=== PATIENT | male | born 1980 | race Caucasian/White ===

== ENCOUNTER 2016-09-08 20:55 | Emergency (ER) | payer SELFPAY ==
[~2016-09-08] VITALS: Ht 177.8 cm; Wt 65.0 kg
[2016-09-08 20:57] VITALS: BP 120/80
== END 2016-09-08 22:03 | disposition home or self-care (01) ==
LOC: ED 21:40
DX: F11.10 Opioid abuse, uncomplicated (principal); F15.10 Other stimulant abuse, uncomplicated; I10 Essential (primary) hypertension; E78.5 Hyperlipidemia, unspecified; Z79.82 Long term (current) use of aspirin
CPT/HCPCS: 93005; 99283

== ENCOUNTER 2017-05-14 11:20 | Observation (INO) | payer MEDICAID ==
[~2017-05-14] VITALS: Ht 175.3 cm; Wt 60.0 kg
[2017-05-14] MEDS: NICOTINE GUM 2 MG BC PRN ×2 (01:15→23:09)
[2017-05-14] MEDS ORDERED: ZIPRASIDONE 20 MG INJ IM ONE ×2 (11:52→12:00)
[2017-05-14] MEDS ORDERED: PLEASE ENTER HEIGHT AND WEIGHT MC SCH (12:00)
[2017-05-14 14:09] LABS: BASOPHILS # (AUTO) 0.03 x10^3/uL (0-0.1); BASOPHILS % (AUTO) 0 % (0-1); EOSINOPHILS # (AUTO) 0.04 x10^3/uL (0-0.4); EOSINOPHILS % (AUTO) 0 % (1-7); LYMPHOCYTES # (AUTO) 3.14 x10^3/uL (1-3.4); LYMPHOCYTES % (AUTO) 30 % (22-44); MD NO; MEAN CORPUSCULAR HEMOGLOBIN 28.3 pg (27.5-34.5); MEAN CORPUSCULAR HGB CONC 33.4 g/dL (33.2-36.2); MEAN CORPUSCULAR VOLUME 84.6 fL (81-97); MEAN PLATELET VOLUME 7.4 fL (7.4-10.4); MONOCYTES # (AUTO) 0.64 x10^3/uL (0.2-0.8); MONOCYTES % (AUTO) 6 % (2-9); NEUTROPHILS # (AUTO) 6.71 x10^3/uL (1.8-6.8); NEUTROPHILS % (AUTO) 64 % (42-75); PLATELET COUNT 298 x10^3/uL (130-400); RED BLOOD COUNT 5.36 x10^6/uL (4.38-5.82); RED CELL DISTRIBUTION WIDTH 13.4 % (9.4-14.8)
[2017-05-14 14:18] LABS: ALBUMIN 3.7 g/dL (3.4-5.0); ANION GAP 5 mmol/L (5-15); CALCIUM 9.3 mg/dL (8.5-10.1); CHLORIDE 105 mmol/L (98-107); CREATININE 0.82 mg/dL (0.7-1.3)
[2017-05-14 14:19] LABS: ACETAMINOPHEN < 2 mcg/mL (10-30); SALICYLATE LEVEL < 1.7 mg/dL (2.8-20.0)
[2017-05-14] MEDS ORDERED: ZIPRASIDONE 20MG CAPSULE PO PRN (18:00)
[2017-05-14] MEDS ORDERED: ZIPRASIDONE 20 MG INJ IM PRN (18:00)
[2017-05-14] MEDS ORDERED: LORazepam 2 MG/ML, 1ML IM PRN (18:00)
[2017-05-14] MEDS ORDERED: LORazepam 1MG TABLET PO PRN (18:00)
[2017-05-14] MEDS ORDERED: ONDANSETRON ODT 4 MG PO PRN (18:00)
[2017-05-14] MEDS ORDERED: DOCUSATE 100 MG CAPSULE PO PRN (18:00)
[2017-05-14 18:25] LABS: FREE T4 (FREE THYROXINE) 1.09 ng/dL (0.76-1.46); THYROID STIMULATING HORMONE 1.35 mIU/L (0.358-3.740)
[2017-05-14 18:45] LABS: AMPHETAMINE SCREEN, URINE Positive (Negative); BARBITURATE SCREEN, URINE Negative (Negative); BENZODIAZEPINE SCREEN, URINE Negative (Negative); CANNABINOID SCREEN, URINE Negative (Negative); COCAINE SCREEN, URINE Negative (Negative); METHADONE SCREEN, URINE Negative (Negative); OPIATE SCREEN, URINE Negative (Negative)
[2017-05-14 18:48] LABS: MICROSCOPIC INDICATED
[2017-05-14 18:54] LABS: CULTURE INDICATED? NO
[2017-05-14 20:04] VITALS: BP 130/88
[2017-05-14] MEDS: NICOTINE 7 MG/24 HR PATCH.TD24 TD SCH (21:24)
[2017-05-15] MEDS: NICOTINE GUM 2 MG BC PRN ×2 (12:57→19:06)
[2017-05-15] MEDS: NICOTINE 7 MG/24 HR PATCH.TD24 TD SCH (18:00)
== END 2017-05-15 19:23 ==
LOC: ED 12:37 → EDIP 13:17 → 2N 19:42
PROVIDERS: ADMIT Hospitalist; ATTEND Hospitalist
DX: R45.851 Suicidal ideations (principal); F17.210 Nicotine dependence, cigarettes, uncomplicated; F15.10 Other stimulant abuse, uncomplicated; F23 Brief psychotic disorder; R44.3 Hallucinations, unspecified; F22 Delusional disorders; Z96.649 Presence of unspecified artificial hip joint
CPT/HCPCS: 36415; 80048; 80307; 80329; 81001; 82040; 84439; 84443; 85025; 96372; 99285; G0378; J3486; G0480